=== PATIENT | male | born 2000 | race Caucasian/White ===

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

== ENCOUNTER 2021-08-09 19:43 | Emergency (ER) | payer BC ==
[2021-08-09 20:55] VITALS: BP 134/77; PULSE 82
== END 2021-08-09 20:00 | disposition home or self-care (01) ==
LOC: CC.ED 19:43
DX: S61.212A Laceration without foreign body of right middle finger without damage to nail, initial encounter (principal); J45.909 Unspecified asthma, uncomplicated; Z88.0 Allergy status to penicillin; W26.0XXA Contact with knife, initial encounter; Y92.000 Kitchen of unspecified non-institutional (private) residence as the place of occurrence of the external cause
CPT/HCPCS: 12001; 99282-25